=== PATIENT | male | born 2000 | race American Indian/Alaskan Native ===

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

== ENCOUNTER 2019-02-15 13:31 | Emergency (ER) | payer SELFPAY ==
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
[2019-02-15 14:04] LABS: Basophils % (Auto) 0.5 % (0.0-1.8); Eosinophils # (Auto) 0.1 K/mm3 (0.0-0.4); Eosinophils % (Auto) 1.6 % (0.0-4.3); Hematocrit 41.5 % (35.5-45.6); Hemoglobin 13.6 gm/dl (11.8-15.2); Lymphocytes % (Auto) 41.3 % (13.4-35.0); Mean Corpuscular HGB Conc 33 % (32-34); Mean Corpuscular Volume 88 fl (84-94); Monocytes # (Auto) 0.3 K/mm3 (0.0-0.8); Monocytes % (Auto) 6.1 % (0.0-7.3); Platelet Count 379 K/mm3 (140-440); Red Blood Count 4.73 M/mm3 (3.65-5.03); Red Cell Distribution Width 14.5 % (13.2-15.2)
[2019-02-15 14:16] LABS: BUN/Creatinine Ratio 12; Blood Urea Nitrogen 11 mg/dL (9-20); Calcium 9.4 mg/dL (8.4-10.2); Hemolysis Index 5
[2019-02-15] MEDS ORDERED: HALOPERIDOL LACTATE 5 MG/1 ML INJ IM PRN (15:28)
[2019-02-15] MEDS ORDERED: LORazepam 2 MG/ML VIAL IM PRN (15:28)
[2019-02-15] MEDS ORDERED: BACITRACIN/POLYMYXIN B OINT 28.35 GM TP ONE (15:28)
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
[2019-02-15 15:43] LABS: WBC,Urine < 1.0 /HPF (0.0-6.0)
[2019-02-15 15:56] LABS: Amphetamine Screen,Urine PRESUMPTIVE NEGATIVE; Benzodiazepines Screen,Urine PRESUMPTIVE NEGATIVE; Cocaine Screen,Urine PRESUMPTIVE NEGATIVE; Methadone Screen,Urine PRESUMPTIVE NEGATIVE; Opiate Screen,Urine PRESUMPTIVE NEGATIVE
[2019-02-15 15:57] LABS: Bilirubin,Urine NEG (Negative); Blood,Urine NEG (Negative); Color,Urine Yellow (Yellow); Protein,Urine <15 mg/dL mg/dL (Negative); Urobilinogen,Urine < 2.0 mg/dL (<2.0)
[2019-02-15] MEDS ORDERED: TETANUS,DIPH,PERTUSS(ACELL) VACCINE 0.5 ML SYRINGE IM ONE (16:05)
[2019-02-15 16:17] LABS: Cannabinoid Screen,Urine PRESUMPTIVE POSITIVE
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
[2019-02-16 07:58] VITALS: BP 100/56
--- NOTE | 2019-02-16 09:06 | Consultation ---
History of Present Illness - Reason for Consult Consult date: 02/16/19 Reason for consult: Mental Health Evaluation Requesting physician: NATALEE CHOE - Chief Complaint Chief complaint: "I need my paperwork signed" - History of Present Psychiatric Illness 18 y.o. AA male who presented to the ER for AH's. Today the patient was calm during the assessment. He stated that he came to ER so he can get paperwork signed so he can return to [employer]. Initially the patient was evasive with his answered, but decided to open up more after several attempts was made to engage him. He stated that he wasn't suicidal nor was he hearing voices when he arrived to the ER. He stated that he burned his left wrist, but he wasn't trying to kill himself. He is adamant about wanting to return back to "[employer]." He would not elaborate why he left [employer] when asked. Collateral information was obtained from the patient's mother Gladys Dorantes at [phone], she stated that her son does "things" to get attention. She did confirm that he was a student at [employer] when asked. The patient denies SI/HI's and AVH's. He denies erratic sleep and a poor appetite. He denies alcohol consumption (etoh), but acknowledged m arijuana use often. Medications and Allergies Allergies Allergy/AdvReac Type Severity Reaction Status Date / Time No Known Allergies Allergy Verified 02/15/19 13:38 Home Medications Medication Instructions Recorded Confirmed Last Taken Type ALBUTEROL Inhaler (OR & NICU) 2 puff IH QID PRN #1 inha 06/12/13 08/07/17 Unknown Rx [ProAir HFA Inhaler] Dexmethylphenidate HCl [Focalin] 20 mg PO QDAY 07/30/15 08/07/17 Unknown History OXcarbazepine [Trileptal] 300 mg PO BID 05/15/16 08/07/17 Unknown History ALBUTEROL Inhaler (OR & NICU) 2 puff IH QID PRN #1 inhalation 12/15/17 Unknown Rx [ProAir HFA Inhaler] Prednisone [predniSONE 10 mg 10 mg PO .TAPER #1 tab.ds.pk 12/15/17 Unknown Rx (6-Day Pack, 21 Tabs)] Active Meds: Active Medications Haloperidol Lactate (Haldol) 5 mg IM Q6HR PRN PRN Reason: Agitation Last Admin: 02/16/19 01:28 Dose: 5 mg Documented by: Lorazepam (Ativan) 2 mg IM Q4HR PRN PRN Reason: Agitation Last Admin: 02/16/19 00:51 Dose: 2 mg Documented by: Past psychiatric history - Past Medical History Past Medical History: No medical history Past Surgical History: No surgical history - past Psychiatric treatment and history psychiatric treatment history: Hx of substance abuse and mood do per the patient. Denies a fam psy hx. - Social History Social history: lives with family Mental Status Exam - Vital signs Last Vital Signs Temp 98.1 F 02/16/19 07:00 Pulse 63 02/16/19 07:00 Resp 18 02/16/19 07:00 BP 100/56 02/16/19 07:00 Pulse Ox 100 02/16/19 07:00 - Exam Narrative exam: MSE: Appearance: calm, cooperative Behavior: regular eye contact Speech: regular rate and loud tone Mood: "okay" Affect: congruent to mood Thought Process: circumstantial Thought Content: denies SI/HI's with AVH's Motor Activity: ambulatory Cognition: A/Ox 3 Insight: fair Judgment: fair Results Result Diagrams: 02/15/19 13:45 02/15/19 13:45 Abnormal lab results 02/15/19 02/15/19 02/15/19 Range/Units 13:45 13:45 13:45 Lymph % (Auto) 41.3 H (13.4-35.0) % Total Creatine Kinase (55-170) units/L Salicylates < 0.3 L (2.8-20.0) mg/dL Acetaminophen < 5.0 L (10.0-30.0) ug/mL 02/15/19 Range/Units 13:45 Lymph % (Auto) (13.4-35.0) % Total Creatine Kinase 173 H (55-170) units/L Salicylates (2.8-20.0) mg/dL Acetaminophen (10.0-30.0) ug/mL All other labs normal. Assessment and Plan Assessment and plan: Impression: No overt psychosis with the patient. Cannabis Use DO. Today the patient was calm and cooperative during assessment. Positive for marijuana. Recommendation/Plan: Rescind 1013 and discussed the importance to abstain from recreational drug use, he verbalized understanding. Dispo: The patient can follow up with [facility] for outpatient psy services. Staffed with Dr Alanna Maxwell.
== END 2019-02-16 13:50 | disposition home or self-care (01) ==
LOC: ED 13:31
DX: F29 Unspecified psychosis not due to a substance or known physiological condition (principal); G40.909 Epilepsy, unspecified, not intractable, without status epilepticus; F12.10 Cannabis abuse, uncomplicated; J45.909 Unspecified asthma, uncomplicated; F90.9 Attention-deficit hyperactivity disorder, unspecified type; Z59.0 Homelessness; Z98.890 Other specified postprocedural states
CPT/HCPCS: 36415; 80048; 80307; 81001; 82550; 85025; 90471; 90715; 96372; 99284; J1630; J2060; 80320; G0480